=== PATIENT | female | born 1960 | race Caucasian/White ===

== ENCOUNTER 2019-02-28 09:32 | Outpatient (CLI) | payer OTHER | END 2019-02-28 09:34 | disposition home or self-care (01) | LOC: SONOGRAMA 09:32 | DX: E04.1 Nontoxic single thyroid nodule (principal) ==

== ENCOUNTER 2021-07-08 10:48 | Outpatient (CLI) | payer OTHER | END 2021-07-08 11:03 | disposition home or self-care (01) | LOC: EDBD 10:48 → SONOGRAMA 10:48 | PROVIDERS: ATTEND Internal Medicine Geriatric Medicine | DX: N60.11 Diffuse cystic mastopathy of right breast (principal); N60.12 Diffuse cystic mastopathy of left breast; Z12.31 Encounter for screening mammogram for malignant neoplasm of breast; N64.4 Mastodynia ==